=== PATIENT | male | born 1960 | race Asian ===

== ENCOUNTER → 2020-08-21 09:15 | Outpatient (CLI) | payer OTHER, SELFPAY ==
--- NOTE | 2020-08-21 | DI.ECHO.S_ITS ---
[facility] +---------+ : : [address] : [place] : : : : [id number] : : : : Phone: [phone] +---------+ Echocardiogram Report + + :Name: DANNY ROBB Study Date: 08/21/2020 Height: 61 in : :[facility] : Weight: 157 lb : : Gender: Male BSA: 1.7 m2 : :: 1960 Age: 60 yrs BP: 153/85 mmHg: :Reason For Study: Atrial fibrillation : :Ordering Physician: Martin : :Lisa Yo Performed By: Mitesh Jackson : :Referring: MARTIN YO : + + Interpretation Summary The left ventricle is normal in size and wall thickness. The ejection fraction is estimated to be 60-65%. The right ventricle is normal in size and function. There is moderate aortic regurgitation. There is mild tricuspid regurgitation. The right ventricular systolic pressure is estimated to be at least 25 mmHg based on an estimated right atrial pressure of 3 mm Hg. The ascending aorta is mild-moderately enlarged. 4.0 cm in diameter. Procedure: A two-dimensional transthoracic echocardiogram with color flow and Doppler was performed. The study quality was technically adequate. There is no prior echocardiogram noted for this patient. The patient was in atrial fibrillation with controlled ventricular rate during the exam. Left Ventricle: The left ventricle is normal in size and wall thickness. There is no thrombus. The ejection fraction is estimated to be 60-65%. Septal motion is consistent with conduction abnormality. Diastolic function could not be accurately assessed due to atrial fibrillation. Right Ventricle: The right ventricle is normal in size and function. Atria: The left atrium is severely dilated. The right atrium is moderately dilated. There is no Doppler evidence for an interatrial shunt. Mitral Valve: There is mild mitral annular calcification. Redundant elongated chordae are noted. There is mild mitral regurgitation. Aortic Valve: There is mild aortic valve sclerosis. The aortic valve is trileaflet. There is no aortic valve stenosis. There is moderate aortic regurgitation. Tricuspid Valve: The tricuspid valve is normal. There is mild tricuspid regurgitation. The right ventricular systolic pressure is estimated to be at least 25 mmHg based on an estimated right atrial pressure of 3 mm Hg. Pulmonic Valve: The pulmonic valve is normal in structure and function. There is trace pulmonic regurgitation. Great Vessels: The aortic root is normal size. The ascending aorta is mild- moderately enlarged. The IVC is of normal diameter and collapses greater than 50% with a sniff. This suggests a low right atrial pressure of 3 mm Hg. Pericardium/ Pleura There is no pericardial effusion. There is no pleural effusion. MMode/2D Measurements & Calculations LVIDd: 5.4 cm LVOT diam: 2.0 cm LVIDs: 3.5 cm Ao root diam: 3.6 cm FS: 34.6 % asc Aorta Diam: 4.0 cm IVSd: 0.95 cm LVPWd: 0.96 cm LV rico. diameter/BSA (cm/m^2): 3.2 LV sys. diameter/BSA (cm/m^2): 2.1 LA A2 area: 26.8 cm2 RA long axis: 5.7 cm LA A4 area: 30.0 cm2 RA area: 24.5 cm2 LA length (vol): 7.5 cm RA vol: 89.3 ml LA vol: 90.9 ml RA : 52.4 ml/m2 LA vol index: 53.4 ml/m2 TAPSE: 2.4 cm Doppler Measurements & Calculations Ao V2 max: 179.7 cm/sec LVOT Max Solitario: 120.7 cm/sec Ao V2 mean: 125.0 cm/sec LV V1 max P.8 mmHg Ao max P.9 mmHg LV V1 VTI: 25.3 cm Ao mean P.1 mmHg DANA(I,D): 2.1 cm2 Ao V2 VTI: 36.1 cm DANA(V,D): 2.1 cm2 sev ratio: 0.70 DANA indexed to BSA (cm^2/m^2): 1.3 AI P1/2t: 579.8 msec AI dec slope: 255.7 cm/sec2 Med Peak E' Solitario: 6.0 cm/sec TR max solitario: 235.1 cm/sec Lat Peak E' Solitario: 9.5 cm/sec TR max P.1 mmHg PA pr(Accel): 43.9 mmHg SV(LVOT): 77.2 ml Reading Physician:10:24 PM
[2020-08-21 10:27] LABS: COVID19 -Nasal RAPID Negative (Negative)
--- NOTE | 2020-08-21 18:43 | DI.NM.S_ITS ---
DATE OF SERVICE: 08/21/2020 PROCEDURE PERFORMED: Exercise treadmill stress and rest myocardial perfusion imaging with gating to assess ejection fraction and regional wall motion. ORDERING PROVIDER: Dr. Danny Villatoro. INDICATIONS: The patient is a 60-year-old male with chronic atrial fibrillation and multiple risk factors for coronary disease. EXERCISE TREADMILL TESTING: The patient was able to exercise for 8 minutes, 37 seconds on a standard Gene protocol, suggesting average exercise capacity with an KAYLA of -1%. He had an accelerated heart rate response to exercise with a resting heart rate of 78 BPM, increasing to a maximum of 189 BPM (119% of his predicted maximum). He had a normal blood pressure response. He had no chest discomfort or anginal symptoms. His resting ECG shows atrial fibrillation with mild, nonspecific ST and T-wave abnormalities. With stress, there are no significant ST-segment shifts or arrhythmias beyond his baseline atrial fibrillation. At 7 minutes of exercise at a heart rate of 141 BPM, 26.0 millicuries of technetium-99m Myoview was injected. He was imaged 15 minutes later using a gated SPECT acquisition protocol. Earlier in the day while at rest, he was injected with 13.6 millicuries of technetium-99m Myoview and was imaged 30 minutes following that injection, again using a gated SPECT acquisition protocol. FINDINGS: 1. Raw data: There is fairly good myocardial tracer uptake. Lung/heart ratio is normal at 0.34 with a normal TID ratio 0.80. 2. Quantitated gated SPECT: Post-stress ejection fraction is estimated at 66% without any focal wall motion abnormality. Resting ejection fraction is 72% with mildly increased left ventricular volumes at 141 mL. 3. Myocardial perfusion imaging: Post-stress supine images show a fairly normal myocardial perfusion pattern with a very subtle defect in the distal inferolateral apex that resolves on prone imaging, revealing a normal, homogeneous perfusion pattern. The resting images show an identical perfusion pattern to that of the post-stress supine images without any areas of improvement. IMPRESSION: 1. Normal myocardial perfusion study for ischemia. 2. Small, subtle, fixed distal inferoapical defect that resolves on prone imaging consistent with attenuation artifact. There is no compelling evidence of myocardial ischemia or previous myocardial infarction. 3. Normal left ventricular systolic function without focal wall motion abnormalities. Left ventricular volumes are mildly increased. 4. Average exercise capacity without angina or ECG evidence of ischemia but a rapid ventricular response with exercise. Shilo Reddy - CHLOE/kalpesh/mio doc#: [id number]/job#: [id number] dd: 08/21/2020 16:52:00 dt: 08/21/2020 18:33:00 DICTATING MD/COPIES TO: Daljit Dimas MD; Danny Villatoro MD COPIES MNE: NOEMY;
== END ==
PROVIDERS: Referring Provider Internal Medicine Cardiovascular Disease; Visit Provider Internal Medicine Cardiovascular Disease
DX: I08.3 Combined rheumatic disorders of mitral, aortic and tricuspid valves (principal); I48.20 Chronic atrial fibrillation, unspecified; I77.89 Other specified disorders of arteries and arterioles; Z20.822 Contact with and (suspected) exposure to COVID-19
CPT/HCPCS: 78452; 87635; 93017; 93306; A9502

== ENCOUNTER → 2023-05-16 13:25 | Outpatient (CLI) | payer OTHER, SELFPAY ==
--- NOTE | 2023-05-16 13:28 | DI.ECHO.S_ITS ---
[facility]---------+ [facility] +---------+ : : [address] : : : : [place] : : : : [phone] : : : : Phone: [phone] : [phone] +---------+ Echocardiogram Report + + :Name: DANNY ROBB Study Date: 05/16/2023 Height: 61 in : :[facility] ReadingLocation: Weight: 118 lb : : Gender: Male BSA: 1.5 m2 : :: 1960 Age: 62 yrs BP: 115/78 mmHg: :Reason For Study: AORTIC INSUFFICIENCY : :Ordering Physician: SANAZ, : :MARTIN Performed By: Yahaira Berry : :Referring: MARTIN YO : + + Interpretation Summary The patient was in atrial fibrillation with controlled ventricular rate during the exam. The left ventricle is normal in size and wall thickness. Left ventricular ejection fraction is estimated to be 65 +/- 5%. The right ventricle is normal in size and function. Overall, there is moderate aortic regurgitation.AI P1/2t: 800.1 msec.BP: 115/78 mmHg Compared to the prior echo study, there has been no change in the severity of aortic regurgitation. There is mild tricuspid regurgitation. The right ventricular systolic pressure is estimated to be at least 37 mmHg based on an estimated right atrial pressure of 8 mm Hg. Previously 25 mmHg. Compared to the prior echo exam, there has been no change in TR severity. The ascending aorta is mild-moderately enlarged. 4.0 cm. Unchanged from the previous study. Procedure: A two-dimensional transthoracic echocardiogram with color flow and Doppler was performed. The study quality was technically adequate. Comparison is made with the echocardiogram of 08/21/2020. The patient was in atrial fibrillation with controlled ventricular rate during the exam. Left Ventricle: The left ventricle is normal in size and wall thickness. There is no thrombus. Left ventricular ejection fraction is estimated to be 65 +/- 5%. There is a borderline dyssynchronous contraction pattern, consistent with a conduction abnormality. Diastolic function could not be accurately assessed due to unobtainable data. Right Ventricle: The right ventricle is normal in size and function. Atria: The left atrium is severely dilated. There has been no significant change since the previous study. The right atrium is severely dilated. There is no Doppler evidence for an interatrial shunt. Mitral Valve: The mitral valve leaflets appear borderline thickened, but open well. There is mild mitral annular calcification. There is mild mitral regurgitation. Aortic Valve: The aortic valve is trileaflet. The aortic valve opens well. There is mild aortic valve sclerosis. There is no aortic valve stenosis. There is moderate aortic regurgitation. Compared to the prior echo study, there has been no change in the severity of aortic regurgitation. Tricuspid Valve: The tricuspid annulus is dilated. There is mild tricuspid regurgitation. The right ventricular systolic pressure is estimated to be at least 37 mmHg based on an estimated right atrial pressure of 8 mm Hg. Compared to the prior echo exam, there has been no change in TR severity. Pulmonic Valve: The pulmonic valve leaflets are thin and pliable; valve motion is normal. There is mild pulmonic regurgitation. Great Vessels: The aortic root is normal size. The ascending aorta is mild- moderately enlarged. The IVC is dilated (diameter is greater than 2.1 cm) yet it collapses greater than 50% with a sniff. This suggests a right atrial pressure of 8 mm Hg. Pericardium/ Pleura There is no pericardial effusion. There is no pleural effusion. MMode/2D Measurements & Calculations LVIDd: 4.8 cm LVOT diam: 2.0 cm LVIDs: 3.0 cm Ao root diam: 3.7 cm FS: 37.4 % asc Aorta Diam: 4.0 cm IVSd: 0.84 cm Ao Arch Diam (Prox Trans): 2.0 cm LVPWd: 0.89 cm LV rico. diameter/BSA (cm/m^2): 3.2 LV sys. diameter/BSA (cm/m^2): 2.0 LA A2 area: 27.0 cm2 RA long axis: 5.8 cm LA A4 area: 24.8 cm2 RA area: 22.8 cm2 LA length (vol): 6.3 cm RA vol: 76.6 ml LA vol: 90.9 ml RA : 50.8 ml/m2 LA vol index: 60.2 ml/m2 IVC diam: 2.2 cm RVD1 (basal): 3.5 cm TAPSE: 2.2 cm Doppler Measurements & Calculations Ao V2 max: 222.0 cm/sec LVOT Max Solitario: 123.5 cm/sec Ao V2 mean: 149.9 cm/sec LV V1 max P.1 mmHg Ao max P.7 mmHg LV V1 VTI: 23.4 cm Ao mean P.2 mmHg DANA(I,D): 1.9 cm2 Ao V2 VTI: 39.8 cm DANA(V,D): 1.8 cm2 sev ratio: 0.59 DANA indexed to BSA (cm^2/m^2): 1.2 AI P1/2t: 800.1 msec AI dec slope: 166.6 cm/sec2 Med Peak E' Solitario: 9.0 cm/sec TR max solitario: 267.6 cm/sec Lat Peak E' Solitario: 10.6 cm/sec TR max P.6 mmHg PA V2 max: 145.8 cm/sec PA V2 mean: 105.7 cm/sec PA mean P.9 mmHg PA pr(Accel): 31.0 mmHg SV(LVOT): 75.0 ml Reading Physician:04:52 PM
== END ==
LOC: ECHO 13:27
PROVIDERS: Referring Provider Internal Medicine Cardiovascular Disease; Visit Provider Internal Medicine Cardiovascular Disease
DX: I08.3 Combined rheumatic disorders of mitral, aortic and tricuspid valves (principal); I77.89 Other specified disorders of arteries and arterioles
CPT/HCPCS: 93306